=== PATIENT | female | born 1980 | race African-American/Black ===

== ENCOUNTER 2017-08-02 12:58 | Emergency (ER) | payer OTHER ==
[~2017-08-02] VITALS: Ht 170.2 cm; Wt 72.6 kg
[~2017-08-02 12:58] MED LIST: NORCO 5-325 TA1 EACH ORAL; SILVADENE20 GM TP
[2017-08-02] MEDS ORDERED: MONTELUKAST SOD10 MG ORAL (13:16)
[2017-08-02] MEDS ORDERED: ALBUTEROL2.5 MG/3 M INH (13:16)
--- NOTE | 2017-08-02 13:20 | Emergency Room Report ---
History of Present Illness General Chief Complaint: Pain Source: Patient Present Illness HPI 36-year-old female presents to the emergency department complaining of persistent cough x1 month. Patient also reports exacerbation of her asthma for which she just recently finished a short course of oral steroids. Patient reports she continues or worsening of her wheezing. Patient states that she has a cough that is worse at night she does report a history of GERD and states that she was taking medication regularly until she was and she never went back on her medication. Patient does report that initially he spicy foods , caffeine and chocolate. She denies fevers, chills she reports feeling some phlegm in her throat but does not come up. She states that she was seen approximately one week ago and she had normal chest x-ray that's when she was prescribed short course of steroids and given a new albuterol inhaler she was out. Patient is neck pain or stiffness. Denies CP, Palpitations, LOC, AMS, dizziness, Changes in Vision, Sensation, paresthesias, or a sudden severe headache. Allergies: Coded Allergies: No Known Allergies (Unverified , 09/05/16) Patient History Past Medical History: see triage record Past Surgical History: none Pertinent Family History: none Immunizations: UTD Reviewed Nursing Documentation: PMH: Agreed, PSxH: Agreed Nursing Documentation-PMH Past Medical History: No History, Except For Hx Asthma: Yes Review of Systems All Other Systems: negative except mentioned in HPI Physical Exam Vital Signs Date Time Temp Pulse Resp B/P (MAP) Pulse Ox O2 Delivery O2 Flow Rate FiO2 08/02/17 13:09 98.6 97 20 111/71 98 Room Air Sp02 EP Interpretation: reviewed, normal General Appearance: no apparent distress, alert, GCS 15, non-toxic Head: normocephalic, atraumatic Eyes: bilateral eye normal inspection, bilateral eye PERRL ENT: hearing grossly normal, normal pharynx, no angioedema, normal voice Neck: full range of motion, supple/symm/no masses Respiratory: chest non-tender, no respiratory distress, no accessory muscle use , speaking full sentences, wheezing Cardiovascular #1: regular rate, rhythm, no edema, normal capillary refill Musculoskeletal: back normal, gait/station normal, normal range of motion, non- tender Neurologic: alert, oriented x3, responsive, motor strength/tone normal, sensory intact, normal gait, speech normal Skin: normal color, no rash, warm/dry, well hydrated Lymphatic: no adenopathy Medical Decision Making PA Attestation Dr. Jason is my supervising Physician whom patient management has been discussed with. Diagnostic Impression: Primary Impression: Bronchitis Additional Impression: GERD (gastroesophageal reflux disease) Qualified Codes: K21.9 - Gastro-esophageal reflux disease without esophagitis ER Course 36-year-old female presents to the emergency department complaining of persistent cough x1 month. Patient also reports exacerbation of her asthma for which she just recently finished a short course of oral steroids. Patient reports she continues or worsening of her wheezing. Patient states that she has a cough that is worse at night she does report a history of GERD and states that she was taking medication regularly until she was and she never went back on her medication. Patient does report that initially he spicy foods , caffeine and chocolate. She denies fevers, chills she reports feeling some phlegm in her throat but does not come up. She states that she was seen approximately one week ago and she had normal chest x-ray that's when she was prescribed short course of steroids and given a new albuterol inhaler she was out. Patient is neck pain or stiffness. Denies CP, Palpitations, LOC, AMS, dizziness, Changes in Vision, Sensation, paresthesias, or a sudden severe headache. Ddx considered but are not limited to asthma exacerbation, CHF, URI, pneumonia, atypical pneumonia, PE, strep pharyngitis, meningitis. Vital signs: Pt. is afebrile, VS are WNL H&PE are most consistent with Bronchitis with possible exacerbation secondary to GERD. pt. denies fevers/chills, cough worse at night , and hx of GERD. ORDERS: none required at this time, the diagnosis is clinical ED INTERVENTIONS: -Albuterol & Atrovent nebulized treatment. - re-examination post nebulized treatment lungs are CTA bilaterally. -d/w pt. conservative treatment, and to follow up with a primary care provider. pt given a list of primary care clinics for follow up. d/w pt. to return to the ED with worsening or new symptoms. DISCHARGE: At this time pt. is stable for d/c to home. Will provide printed patient care instructions, and any necessary prescriptions. Care plan and follow up instructions have been discussed with the patient prior to discharge. Last Vital Signs Date Time Temp Pulse Resp B/P (MAP) Pulse Ox O2 Delivery O2 Flow Rate FiO2 08/02/17 13:09 98.6 97 20 111/71 98 Room Air Disposition: HOME, SELF-CARE Condition: Stable Scripts Ranitidine Hcl* (ZANTAC*) 150 Mg Tablet 150 MG ORAL TWICE A DAY for 14 Days, #28 TAB Prov: Cheri Santana 08/02/17 Guaifenesin (Guaifenesin) 1,200 Mg Tab.er.12h 1200 MG PO Q12HR for 10 Days, #20 TAB Prov: Cheri Santana 08/02/17 Codeine/Promethazine Hcl* (PROMETHAZINE-CODEINE SYRUP*) 118 Ml Syrup 5 ML ORAL Q6H Y for For Cough, #120 ML 0 Refills Prov: Cheri Santana 08/02/17 Patient Instructions: Acute Bronchitis, [id number], Food Choices for Gastroesophageal Reflux Disease, Adult, Tsek-[id number], Gastroesophageal Reflux Disease, Adult, [id number] Additional Instructions: Take medications as directed. Follow up with a Primary Care Provider in 3-5 days, even if your symptoms have resolved. Return sooner to ED if new symptoms occur, or current symptoms become worse. Do not drink alcohol, drive, or operate heavy machinery while taking Cough Syrup as this may cause drowsiness. - Please note that this Emergency Department Report was dictated using [employer] adviser technology software, occasionally this can lead to erroneous entry secondary to interpretation by the dictation equipment. Cheri Santana Aug 02, 2017 13:20
[2017-08-02] MEDS ORDERED: Albuterol ud Inhalation HHN ONE (13:30)
[2017-08-02] MEDS ORDERED: Ipratropium 0.02% Inh Soln 2.5ml UD HHN ONE (13:30)
[2017-08-02] MEDS ORDERED: ZANTAC150 MG ORAL (14:12)
[2017-08-02] MEDS ORDERED: GUAIFENESIN1200 MG PO (14:12)
[2017-08-02] MEDS ORDERED: PROMETHAZINE-C118 M1 ORAL (14:12)
[2017-08-02 14:28] VITALS: BP 107/71
== END 2017-08-02 14:29 | disposition home or self-care (01) ==
LOC: EMR 14:15
DX: J45.901 Unspecified asthma with (acute) exacerbation (principal); K21.9 Gastro-esophageal reflux disease without esophagitis
CPT/HCPCS: 94640; 94664; 99283

== ENCOUNTER 2017-08-14 07:05 | Emergency (ER) | payer OTHER ==
[~2017-08-14] VITALS: Ht 170.2 cm; Wt 72.6 kg
[~2017-08-14 07:05] MED LIST changes: +ALBUTEROL2.5 MG/3 M INH; +GUAIFENESIN1200 MG PO; +MONTELUKAST SOD10 MG ORAL; +PROMETHAZINE-C118 M1 ORAL; +ZANTAC150 MG ORAL
[2017-08-14] MEDS ORDERED: Acetaminophen 500mg (ES) tab ORAL ONE (07:45)
[2017-08-14] MEDS ORDERED: Cyclobenzaprine 10mg Tab ORAL ONE (07:45)
[2017-08-14 08:22] VITALS: BP 111/71
[2017-08-14] MEDS ORDERED: TYLENOL EXTRA500 MG ORAL (08:29)
[2017-08-14] MEDS ORDERED: CYCLOBENZAPRINE10 MG ORAL (08:29)
--- NOTE | 2017-08-14 08:39 | Emergency Room Report ---
History of Present Illness General Chief Complaint: Pain Source: Patient Present Illness HPI 36-year-old female presents ED complaining of left-sided chest wall pain and coughing times one month. Patient was seen here last month and was noted to have bronchitis. Patient states the coughing has persisted and now has left- sided chest wall pain. 10/10, worse with coughing twisting and bending. Patient states that when to another ER 2 days ago and was prescribed antibiotics. States the cough is slowly improving but pain persists. No other aggravating relieving factors. Denies any other associated symptoms Allergies: Coded Allergies: No Known Allergies (Unverified , 09/05/16) Patient History Past Medical History: asthma Past Surgical History: none Pertinent Family History: none Social History: Denies: smoking, alcohol use, drug use Last Menstrual Period: unk Immunizations: UTD Reviewed Nursing Documentation: PMH: Agreed, PSxH: Agreed Nursing Documentation-PMH Hx Asthma: Yes Review of Systems All Other Systems: negative except mentioned in HPI Physical Exam Vital Signs Date Time Temp Pulse Resp B/P (MAP) Pulse Ox O2 Delivery O2 Flow Rate FiO2 08/14/17 07:11 97.9 104 12 111/71 98 Room Air Sp02 EP Interpretation: reviewed, normal General Appearance: no apparent distress, alert, GCS 15, non-toxic Head: normocephalic Eyes: bilateral eye normal inspection, bilateral eye PERRL ENT: normal ENT inspection Neck: normal inspection Respiratory: lungs clear, normal breath sounds, other - L sided chest wall pain Cardiovascular #1: regular rate, rhythm, no edema Gastrointestinal: normal inspection Rectal: deferred Genitourinary: no CVA tenderness Musculoskeletal: normal inspection Neurologic: alert, oriented x3, responsive, motor strength/tone normal, sensory intact, speech normal Psychiatric: normal inspection Skin: normal inspection Lymphatic: normal inspection Medical Decision Making Diagnostic Impression: Primary Impression: Strain of chest wall Qualified Codes: S29.011A - Strain of muscle and tendon of front wall of thorax, initial encounter ER Course Hospital Course 36-year-old female presents to ED with chest wall pain times one month, coughing Differential diagnoses include: bronchitis, muscle strain, pneumonia Clinical course Patient placed on stretcher. After initial history, physical exam reveals female in no acute distress. Bilateral TM unremarkable. No pharyngeal erythema. No tonsillar exudates. No lymphadenopathy. lungs clear. There is reproducible sided lateral wall tenderness. No bruising or crepitus. Consistent with chest wall strain secondary to persistent coughing She was already prescribed antibiotics, steroids, cough medication by another ER 2 days ago. We will treat the muscle strain Given Tylenol, Flexeril with pain improved Diagnosis - strain of chest wall Stable and discharged home with Rx Tylenol, Flexeril. Instructed to followup with PMD. Return to ED if symptoms recur or worsen Last Vital Signs Date Time Temp Pulse Resp B/P (MAP) Pulse Ox O2 Delivery O2 Flow Rate FiO2 08/14/17 08:22 97.9 75 12 111/71 98 Room Air Status: improved Disposition: HOME, SELF-CARE Condition: Stable Scripts Cyclobenzaprine Hcl* (FLEXERIL*) 10 Mg Tablet 10 MG ORAL TID Y for Muscle Spasm, #20 TAB Prov: VISHAL LAUREN M.D. 08/14/17 Acetaminophen* (TYLENOL EXTRA STRENGTH*) 500 Mg Tablet 500 MG ORAL Q8H Y for Prn Headache/Temp > 101, #30 TAB 0 Refills Prov: VISHAL LAUREN M.D. 08/14/17 Patient Instructions: Chest Wall Pain, [id number] VISHAL LAUREN M.D. Aug 14, 2017 08:39
[2017-08-14 08:45] VITALS: BP 111/71
== END 2017-08-14 09:36 | disposition home or self-care (01) ==
LOC: EMR 07:33
DX: S29.011A Strain of muscle and tendon of front wall of thorax, initial encounter (principal); X58.XXXA Exposure to other specified factors, initial encounter; Y92.9 Unspecified place or not applicable; J45.909 Unspecified asthma, uncomplicated
CPT/HCPCS: 99283

== ENCOUNTER 2017-10-29 11:00 | Emergency (ER) | payer OTHER ==
[~2017-10-29] VITALS: Ht 170.2 cm; Wt 71.7 kg
[~2017-10-29 11:00] MED LIST changes: +CYCLOBENZAPRINE10 MG ORAL; +TYLENOL EXTRA500 MG ORAL
[2017-10-29] MEDS ORDERED: AMOXICILLIN500 MG ORAL (11:39)
[2017-10-29] MEDS ORDERED: PREDNISONE20 MG ORAL (11:39)
[2017-10-29 12:05] VITALS: BP 99/49
--- NOTE | 2017-10-30 07:00 | Emergency Room Report ---
History of Present Illness General Chief Complaint: Upper Respiratory Illness Source: Patient Present Illness HPI 37-year-old female presents ED for evaluation. Complaining of headache with productive cough and sinus pressure x2 weeks. Headache is sharp, 7/10, nonradiating. Denies fevers chills. Notes productive cough with greenish phlegm. Denies ear ache or sore throat. Attempted to leave with over-the- counter medications without relief. No other aggravating relieving factors. Denies any other associated symptoms Allergies: Uncoded Allergies: NUTS (Allergy, Unknown, 10/29/17) SEAFOOD (Allergy, Unknown, 10/29/17) Patient History Past Medical History: asthma, GERD Past Surgical History: none Pertinent Family History: none Social History: Denies: smoking, alcohol use, drug use Last Menstrual Period: Depo shot Now: No Immunizations: UTD Reviewed Nursing Documentation: PMH: Agreed, PSxH: Agreed Nursing Documentation-PMH Past Medical History: No History, Except For Hx Asthma: Yes Hx Gastrointestinal Problems: Yes - GERD Review of Systems All Other Systems: negative except mentioned in HPI Physical Exam Vital Signs Date Time Temp Pulse Resp B/P (MAP) Pulse Ox O2 Delivery O2 Flow Rate FiO2 10/29/17 11:14 97.8 92 16 99/49 97 Room Air 97.9 Sp02 EP Interpretation: reviewed, normal General Appearance: no apparent distress, alert, GCS 15, non-toxic Head: normocephalic Eyes: bilateral eye normal inspection, bilateral eye PERRL ENT: hearing grossly normal, normal pharynx, no angioedema, normal voice Neck: full range of motion, supple, no meningismus, supple/symm/no masses Respiratory: chest non-tender, lungs clear, normal breath sounds, speaking full sentences Cardiovascular #1: regular rate, rhythm, no edema Gastrointestinal: normal inspection Rectal: deferred Genitourinary: no CVA tenderness Musculoskeletal: normal inspection Neurologic: alert, oriented x3, responsive, motor strength/tone normal, sensory intact, speech normal Psychiatric: normal inspection Skin: normal inspection Lymphatic: normal inspection Medical Decision Making Diagnostic Impression: Primary Impression: Sinusitis Qualified Codes: J01.00 - Acute maxillary sinusitis, unspecified ER Course Hospital Course 37-year-old F presents to ED complaining of nasal congestion, headache, cough. Differential diagnoses include: URI, pharyngitis, otitis media, asthma Clinical course Patient placed on stretcher. After initial history, physical exam reveals a young female in no acute distress. Bilateral TM unremarkable. No pharyngeal erythema. No tonsillar exudates. No lymphadenopathy. lungs clear. abdomen soft. maxillary tenderness. Clinical findings consistent with sinusitits. Given persistence of symptoms for 2 weeks we will prescribe antibiotics and steroid Diagnosis - sinusitits Stable and discharged home with prescriptions for Prednisone, Amoxicillin. Instructed to followup with PMD. Return to ED if symptoms recur or worsen Last Vital Signs Date Time Temp Pulse Resp B/P (MAP) Pulse Ox O2 Delivery O2 Flow Rate FiO2 10/29/17 12:05 98.0 92 16 99/49 99 Room Air 98.0 Status: improved Disposition: HOME, SELF-CARE Condition: Stable Scripts Prednisone* (PREDNISONE*) 20 Mg Tablet 40 MG ORAL DAILY, #10 TAB Prov: VISHAL LAUREN M.D. 10/29/17 Amoxicillin* (AMOXIL*) 500 Mg Capsule 500 MG ORAL THREE TIMES A DAY for 10 Days, #30 CAP Prov: VISHAL LAUREN M.D. 10/29/17 Referrals: [facility],REFERRING (PCP) Patient Instructions: Sinusitis, Adult, [id number] VISHAL LAUREN M.D. Oct 30, 2017 07:00
== END 2017-10-29 12:07 | disposition home or self-care (01) ==
LOC: EMR 11:40
DX: J32.9 Chronic sinusitis, unspecified (principal); J45.909 Unspecified asthma, uncomplicated; K21.9 Gastro-esophageal reflux disease without esophagitis; Z91.018 Allergy to other foods; Z91.013 Allergy to seafood
CPT/HCPCS: 99283

== ENCOUNTER 2018-04-19 15:28 | Emergency (ER) | payer OTHER ==
[~2018-04-19] VITALS: Ht 170.2 cm; Wt 72.6 kg
[~2018-04-19 15:28] MED LIST changes: +AMOXICILLIN500 MG ORAL; +PREDNISONE20 MG ORAL
[2018-04-19 15:54] VITALS: BP 100/57
[2018-04-19] MEDS ORDERED: Lidocaine 2% Visc 15ml soln ORAL ONE (16:15)
[2018-04-19] MEDS ORDERED: Acetaminophen 500mg (ES) tab ORAL ONE (16:15)
[2018-04-19] MEDS ORDERED: AMOXICILLIN500 MG ORAL (16:16)
--- NOTE | 2018-04-19 16:16 | Emergency Room Report ---
History of Present Illness General Chief Complaint: Sore Throat Source: Patient Present Illness HPI 37-year-old female patient presents ER complaining of sore throat for the past few days. Denies fever. Denies vomiting. Reports right ear ache during this time, states she has been taking some tears in relief of symptoms. Reports she noticed white exudates on her tongue. Reports pain with swallowing. Denies chest pain, shortness of breath, vomiting, abdominal pain, other acute symptoms. Allergies: Uncoded Allergies: NUTS (Allergy, Unknown, 10/29/17) SEAFOOD (Allergy, Unknown, 10/29/17) Patient History Past Medical History: see triage record Last Menstrual Period: 04/10/18 Now: No Reviewed Nursing Documentation: PMH: Agreed; PSxH: Agreed Nursing Documentation-PMH Past Medical History: No History, Except For Hx Asthma: Yes Hx Gastrointestinal Problems: Yes - GERD Review of Systems All Other Systems: negative except mentioned in HPI Physical Exam Vital Signs Date Time Temp Pulse Resp B/P (MAP) Pulse Ox O2 Delivery O2 Flow Rate FiO2 04/19/18 15:36 98.2 81 18 100/57 94 Room Air 98.2 Sp02 EP Interpretation: reviewed, normal General Appearance: well appearing, no apparent distress, alert, GCS 15, non- toxic Head: normocephalic, atraumatic Eyes: bilateral eye normal inspection, bilateral eye PERRL ENT: hearing grossly normal, normal pharynx, no angioedema, normal voice, TMs + canals normal, uvula midline, moist mucus membranes, tonsillar swelling, pharyngeal erythema Neck: full range of motion Respiratory: lungs clear, normal breath sounds, no rhonchi, no respiratory distress, no accessory muscle use, no wheezing, speaking full sentences Cardiovascular #1: regular rate, rhythm, no edema Musculoskeletal: back normal, digits/nails normal, gait/station normal, normal range of motion, non-tender Neurologic: alert, oriented x3, responsive, motor strength/tone normal, sensory intact Skin: no rash Lymphatic: adenopathy - cervical Medical Decision Making PA Attestation Dr. Rodriguez is my supervising Physician whom patient management has been discussed with. Diagnostic Impression: Primary Impression: Pharyngitis ER Course Pt presents to ED c/o sore throat. DDX considered but are not limited to influenza, viral URI, strep throat, pharyngitis, tonsillitis. no uvula deviation, no neck stiffness, no stridor, no tripoding, low suspicion for peritonsillar abscess. VITAL SIGNS are WNL, patient is afebrile ER COURSE: tonsillar swelling, pharyngeal erythema, lymphadenopathy, no cough, afebrile, likely pharyngitis. Due to physical exam ad patient history, will provide antibiotic treatment. Take Tylenol for relief of symptoms. Saltwater gargles. Drink plenty of fluids. Symptomatic treatment. Take Tylenol for pain symptoms. DISCHARGE: Rx provided for amoxicillin At this time pt is stable for d/c to home. Patient resting comfortably, in no acute distress, nontoxic appearing, talking without difficulty Patient to take medications as instructed. Will provide with patient care instructions and any necessary prescriptions. Care plan and follow-up instructions provided. Patient instructed to follow-up with primary care provider in 3 - 5 days. Patient questions asked and answered. ER precautions given. Patient instructed to return to ER immediately for any new or worsening of symptoms including but not limited to fever, SOB, difficulty swallowing. - Please note that this Emergency Department Report was dictated using [employer] technology software, occasionally this can lead to erroneous entry secondary to interpretation by the dictation equipment. Last Vital Signs Date Time Temp Pulse Resp B/P (MAP) Pulse Ox O2 Delivery O2 Flow Rate FiO2 04/19/18 15:54 98.2 76 18 100/57 94 Room Air 98.2 Disposition: HOME, SELF-CARE Condition: Stable Scripts Amoxicillin* (AMOXIL*) 500 Mg Capsule 500 MG ORAL EVERY 8 HOURS for 7 Days, #21 CAP Prov: Joaquin Odom 04/19/18 Patient Instructions: Pharyngitis, [id number] Additional Instructions: Followup with primary care provider in 3 -5 days. Salt water gargles Take Tylenol for pain and fever symptoms Drink plenty of water. Take medications as directed. Patient questions asked and answered. ER precautions given, patient instructed to return to ER immediately for any new or worsening of symptoms including but not limited to intractable vomiting, difficulty breathing, inability to eat. Joaquin Odom Apr 19, 2018 16:16
[2018-04-19 16:24] VITALS: BP 100/57
== END 2018-04-19 16:24 | disposition home or self-care (01) ==
LOC: EMR 16:09
DX: J02.9 Acute pharyngitis, unspecified (principal); J45.909 Unspecified asthma, uncomplicated; Z91.018 Allergy to other foods; Z91.013 Allergy to seafood
CPT/HCPCS: 99283

== ENCOUNTER 2018-06-29 12:22 | Emergency (ER) | payer OTHER ==
[~2018-06-29] VITALS: Ht 170.2 cm; Wt 74.8 kg
[2018-06-29] MEDS ORDERED: Albuterol/Ipratropium 3ml neb HHN ONE (12:45)
--- NOTE | 2018-06-29 12:52 | Emergency Room Report ---
History of Present Illness General Chief Complaint: Asthma Source: Patient Present Illness HPI 37-year-old female patient presents ER complaining of asthma symptoms. Patient reports that she is wheezing for the past week. Reports symptoms worsen night. Reports has been using her inhaler with out relief of symptoms. Reports no cough during this time. Denies fever, chest pain, shortness of breath. Denies other acute symptoms. Denies abdominal pain, vomiting, diarrhea. Allergies: Uncoded Allergies: NUTS (Allergy, Unknown, 10/29/17) SEAFOOD (Allergy, Unknown, 10/29/17) Patient History Past Medical History: see triage record Last Menstrual Period: 05/15/2018 Reviewed Nursing Documentation: PMH: Agreed; PSxH: Agreed Nursing Documentation-PMH Past Medical History: No History, Except For Hx Cardiac Problems: No Hx Hypertension: No Hx Pacemaker: No Hx Asthma: Yes Hx COPD: No Hx Diabetes: No Hx Cancer: No Hx Gastrointestinal Problems: Yes - GERD Hx Dialysis: No History Of Psychiatric Problem: No Hx Neurological Problems: Yes - Sciatic nerve Hx Cerebrovascular Accident: No Hx Seizures: No Review of Systems All Other Systems: negative except mentioned in HPI Physical Exam Vital Signs Date Time Temp Pulse Resp B/P (MAP) Pulse Ox O2 Delivery O2 Flow Rate FiO2 06/29/18 12:28 97.6 63 16 109/63 99 Room Air 97.5 Sp02 EP Interpretation: reviewed, normal General Appearance: well appearing, no apparent distress, alert, GCS 15, non- toxic Head: normocephalic, atraumatic Eyes: bilateral eye normal inspection, bilateral eye PERRL ENT: hearing grossly normal, normal pharynx, no angioedema, normal voice, uvula midline, moist mucus membranes Neck: full range of motion Respiratory: lungs clear, no rhonchi, no respiratory distress, no accessory muscle use, speaking full sentences, wheezing - diffuse intermittent expiratory , other - no stridor Cardiovascular #1: regular rate, rhythm, no edema Musculoskeletal: back normal, digits/nails normal, gait/station normal, normal range of motion, non-tender Neurologic: alert, oriented x3, responsive, motor strength/tone normal, sensory intact Psychiatric: mood/affect normal Skin: no rash Medical Decision Making PA Attestation Dr. Lundy is my supervising Physician whom patient management has been discussed with. Diagnostic Impression: Primary Impression: Asthma exacerbation ER Course Pt presents to ED c/o asthma symptoms. DDX considered but are not limited to asthma, viral URI, influenza, bronchitis, pneumonia. No rhonchi or rales, patient afebrile, low suspicion for pneumonia at this time , does not require x-rays or imaging. VITAL SIGNS are WNL, patient is afebrile. Ordered breathing treatment and medication. ER COURSE Patient provided with prednisone Duoneb breathing treatment provided. Following treatment patient states no longer having wheezing symptoms. Lungs clear to auscultation on repeat exam. Patient is resting comfortably in no acute distress. ER precautions given. F/u with PCP. Declined Rx for cough medication. DISCHARGE: -Rx given for Prednisone. -Rx provided for Albuterol MDI. At this time pt is stable for d/c to home. Patient is resting comfortably in no acute distress, nontoxic appearing, able to answer questions without difficulty. Patient to take medications as instructed Will provide with patient care instructions and any necessary prescriptions. Care plan and follow-up instructions provided. Patient instructed to follow-up with primary care provider in 3 - 5 days. Patient questions asked and answered. Patient reports understanding and agreement to treatment plan. ER precautions given. Patient instructed to return to ER immediately for any new or worsening of symptoms including but not limited to increasing SOB, persistent fever. - Please note that this Emergency Department Report was dictated using [employer] admin technology software, occasionally this can lead to erroneous entry secondary to interpretation by the dictation equipment. Last Vital Signs Date Time Temp Pulse Resp B/P (MAP) Pulse Ox O2 Delivery O2 Flow Rate FiO2 06/29/18 12:28 97.6 63 16 109/63 99 Room Air 97.5 Status: improved Disposition: HOME, SELF-CARE Condition: Stable Scripts Albuterol Sulfate* (ALBUTEROL SULFATE MDI*) 8.5 Gm Hfa.aer.ad 2 PUFF INH Q4H, #1 INH 0 Refills Prov: Joaquin Odom 06/29/18 Prednisone* (PREDNISONE*) 20 Mg Tablet 40 MG ORAL DAILY for 4 Days, #8 TAB Prov: Joaquin Odom 06/29/18 Patient Instructions: Asthma, Adult Additional Instructions: Followup with primary care provider in 3 -5 days. Discuss treatment and management options for asthma including need for new medications as needed. Take medications as directed. Patient questions asked and answered. ER precautions given, patient instructed to return to ER immediately for any new or worsening of symptoms. Joaquin Odom Jun 29, 2018 12:52
[2018-06-29] MEDS ORDERED: PREDNISONE20 MG ORAL (13:21)
[2018-06-29] MEDS ORDERED: ALBUTEROL SULF8.5 GM INH (13:21)
[2018-06-29 13:33] VITALS: BP 109/63
== END 2018-06-29 13:35 | disposition home or self-care (01) ==
LOC: EMR 12:55
DX: J45.901 Unspecified asthma with (acute) exacerbation (principal); K21.9 Gastro-esophageal reflux disease without esophagitis; Z91.018 Allergy to other foods; Z91.013 Allergy to seafood
CPT/HCPCS: 94640; 94664; 99284; J7512; J7620

== ENCOUNTER 2018-12-14 13:23 | Emergency (ER) | payer OTHER ==
[~2018-12-14] VITALS: Ht 170.2 cm; Wt 61.2 kg
[~2018-12-14 13:23] MED LIST changes: +ALBUTEROL SULF8.5 GM INH
[2018-12-14 13:40] VITALS: BP 105/62
--- NOTE | 2018-12-14 14:21 | Emergency Room Report ---
History of Present Illness General Chief Complaint: Sore Throat Source: Patient Present Illness HPI 38-year-old female presents to the emergency department complaining of asthma exacerbation, dry cough, 3 out of 10 in severity sore throat as well as nasal congestion and rhinorrhea 5 days. Patient denies fevers or chills she reports that she is out of her albuterol inhaler at home. Patient denies recent travel or ill contacts. Patient denies swollen tender lymph nodes or swollen tonsils. Reports wheezing.. Reports coughing up some phlegm intermittently usually in the morning. Report some relief with inhaler, and her symptoms are aggravated when she is up and about moving around and doing housework. Denies CP, palpitations, Dizziness or Syncope. Allergies: Uncoded Allergies: NUTS (Allergy, Unknown, 10/29/17) SEAFOOD (Allergy, Unknown, 10/29/17) Patient History Past Medical History: see triage record Past Surgical History: none Pertinent Family History: none Last Menstrual Period: 11/17/18 Now: No Immunizations: UTD Reviewed Nursing Documentation: PMH: Agreed; PSxH: Agreed Nursing Documentation-PMH Past Medical History: No History, Except For Hx Cardiac Problems: No Hx Hypertension: No Hx Pacemaker: No Hx Asthma: Yes Hx COPD: No Hx Diabetes: No Hx Cancer: No Hx Gastrointestinal Problems: Yes - GERD Hx Dialysis: No Hx Neurological Problems: Yes - Sciatic nerve Hx Cerebrovascular Accident: No Hx Seizures: No Review of Systems All Other Systems: negative except mentioned in HPI Physical Exam Vital Signs Date Time Temp Pulse Resp B/P (MAP) Pulse Ox O2 Delivery O2 Flow Rate FiO2 12/14/18 13:26 98.2 82 20 105/62 96 Room Air Sp02 EP Interpretation: reviewed, normal General Appearance: no apparent distress, alert, GCS 15, non-toxic Head: normocephalic, atraumatic Eyes: bilateral eye normal inspection, bilateral eye PERRL ENT: hearing grossly normal, normal voice, TMs + canals normal, uvula midline, nasal congestion, pharyngeal erythema Neck: full range of motion Respiratory: chest non-tender, lungs clear, speaking full sentences, wheezing Cardiovascular #1: regular rate, rhythm Musculoskeletal: back normal, gait/station normal, normal range of motion, non- tender Neurologic: alert, oriented x3, responsive, motor strength/tone normal, sensory intact, speech normal, grossly normal Psychiatric: judgement/insight normal Skin: normal color, no rash, warm/dry, well hydrated Lymphatic: no adenopathy Medical Decision Making Medicare Attestation Dr. lombardo is my supervising Physician whom patient management has been discussed with. Diagnostic Impression: Primary Impression: Bronchitis ER Course 38-year-old female presents to the emergency department complaining of asthma exacerbation, dry cough, 3 out of 10 in severity sore throat as well as nasal congestion and rhinorrhea 5 days. Patient denies fevers or chills she reports that she is out of her albuterol inhaler at home. Patient denies recent travel or ill contacts. Patient denies swollen tender lymph nodes or swollen tonsils. Reports wheezing.. Reports coughing up some phlegm intermittently usually in the morning. Report some relief with inhaler, and her symptoms are aggravated when she is up and about moving around and doing housework. Denies CP, palpitations, Dizziness or Syncope. Ddx considered but are not limited to URI, pneumonia, PE, strep pharyngitis, meningitis. Vital signs: Pt.is afebrile VS are WNL H&PE are most consistent with bronchitis with PND. ORDERS: none required at this time, the diagnosis is clinical ED INTERVENTIONS: None required at this time. DISCHARGE: At this time pt. is stable for d/c to home. Will provide printed patient care instructions, and any necessary prescriptions. Care plan and follow up instructions have been discussed with the patient prior to discharge. Last Vital Signs Date Time Temp Pulse Resp B/P (MAP) Pulse Ox O2 Delivery O2 Flow Rate FiO2 12/14/18 13:40 98.2 67 20 105/62 96 Room Air Disposition: HOME, SELF-CARE Condition: Stable Scripts Guaifen/Phenyleph/Acetaminophn (MUCINEX FAST-MAX COLD-SINUS TB) 1 Each Tablet 1 EACH PO Q12HR for 7 Days, #14 TAB Prov: Cheri Santana 12/14/18 Prednisone* (PREDNISONE*) 20 Mg Tablet 40 MG ORAL DAILY for 5 Days, #10 TAB Prov: Cheri Santana 12/14/18 Codeine/Promethazine Hcl* (PROMETHAZINE-CODEINE SYRUP*) 118 Ml Syrup 5 ML ORAL Q6H PRN for For Cough, #120 ML 0 Refills Prov: Cheri Santana 12/14/18 Albuterol Sulfate* (ALBUTEROL SULFATE MDI*) 8.5 Gm Hfa.aer.ad 2 PUFF INH Q3H, #1 INH 2 Refills Prov: Cheri Santana 12/14/18 Patient Instructions: Acute Bronchitis, [id number] Additional Instructions: Take medications as directed. Follow up with a Primary Care Provider in 3-5 days, even if your symptoms have resolved. --Please review list of primary care clinics, if you do not already have a primary care provider Return sooner to ED if new symptoms occur, or current symptoms become worse. Do not drink alcohol, drive, or operate heavy machinery while taking COUGH SYRUP as this may cause drowsiness. - Please note that this Emergency Department Report was dictated using [employer] light repairer technology software, occasionally this can lead to erroneous entry secondary to interpretation by the dictation equipment. Cheri Santana Dec 14, 2018 14:21
[2018-12-14] MEDS ORDERED: ALBUTEROL SULF8.5 GM INH (14:22)
[2018-12-14] MEDS ORDERED: MUCINEX FAST-M1 EAC2 PO (14:22)
[2018-12-14] MEDS ORDERED: PREDNISONE20 MG ORAL (14:22)
[2018-12-14] MEDS ORDERED: PROMETHAZINE-C118 M1 ORAL (14:22)
[2018-12-14 15:14] VITALS: BP 105/62
== END 2018-12-14 14:30 | disposition home or self-care (01) ==
LOC: EMR 14:29
DX: J20.9 Acute bronchitis, unspecified (principal); Z91.018 Allergy to other foods; Z91.013 Allergy to seafood; K21.9 Gastro-esophageal reflux disease without esophagitis
CPT/HCPCS: 99282

== ENCOUNTER 2019-06-14 10:40 | Emergency (ER) | payer OTHER ==
[~2019-06-14] VITALS: Ht 170.2 cm; Wt 77.6 kg
[~2019-06-14 10:40] MED LIST changes: +MUCINEX FAST-M1 EAC2 PO
[2019-06-14] MEDS ORDERED: D5NS 1,000 ML IV ONE (11:00)
[2019-06-14 11:21] LABS: APPEARANCE,URINE CLEAR; BILIRUBIN, URINE NEGATIVE (NEGATIVE); COLOR,URINE PALE YELLOW; GLUCOSE, URINE (UA) NEGATIVE (NEGATIVE); KETONES,URINE 3+ (NEGATIVE); LEUKOCYTE ESTERASE ,URINE 1+ (NEGATIVE); NITRITE,URINE NEGATIVE (NEGATIVE); PH,URINE 7 (4.5-8.0); PROTEIN,URINE NEGATIVE (NEGATIVE); UROBILINOGEN,URINE 1 MG/DL (0.0-1.0)
[2019-06-14 11:23] LABS: BASOPHILS % (AUTO) 0.5 % (0.0-2.0); EOSINOPHILS % (AUTO) 1.3 % (0.0-3.0); HEMATOCRIT 38.3 % (37.0-47.0); HEMOGLOBIN 13.1 G/DL (12.0-16.0); LYMPHOCYTES % (AUTO) 7.2 % (20.0-45.0); MEAN CORPUSCULAR VOLUME 91 FL (80-99); MONOCYTES % (AUTO) 6.6 % (1.0-10.0); NEUTROPHILS % (AUTO) 84.3 % (45.0-75.0); PLATELET COUNT 179 K/UL (150-450); RED CELL DISTRIBUTION WIDTH 11.3 % (11.6-14.8)
--- NOTE | 2019-06-14 11:25 | NUR ---
ED Nurse Note:pt. came with pausea flu like symptoms, no fever, blood and urine sent to labs, given IV meds and fluids , VSS, pt. getting abd U/S done
[2019-06-14 11:39] VITALS: BP 101/61
[2019-06-14 11:40] LABS: ANION GAP 8 mmol/L (5-15); BLOOD UREA NITROGEN 9 mg/dL (7-18); CALCIUM 8.7 MG/DL (8.5-10.1); CARBON DIOXIDE 24 MMOL/L (21-32); CHLORIDE 104 MMOL/L (98-107); CREATININE 0.7 MG/DL (0.55-1.30); POTASSIUM 3.6 MMOL/L (3.5-5.1); SODIUM 136 MMOL/L (136-145)
[2019-06-14 11:44] LABS: ALANINE AMINOTRANSFERASE 14 U/L (12-78); ALBUMIN 3.1 G/DL (3.4-5.0); ALBUMIN/GLOBULIN RATIO 0.8 (1.0-2.7); ALKALINE PHOSPHATASE 92 U/L (46-116); ASPARTATE AMINO TRANSFERASE 18 U/L (15-37)
--- NOTE | 2019-06-14 11:56 | Emergency Room Report ---
History of Present Illness General Chief Complaint: Abdominal Pain Source: Patient Present Illness HPI 38-year-old female G5, , 7 months presents with nausea vomiting, happy abdominal pain no aggravating or alleviating factors severity is mild, patient reports that her daughter has the same illness she thinks she caught it from her, symptoms started this morning, she had 4 episodes of nausea vomiting, no diarrhea, patient presents for evaluation. Allergies: Uncoded Allergies: NUTS (Allergy, Unknown, 10/29/17) SEAFOOD (Allergy, Unknown, 10/29/17) Patient History Past Medical History: see triage record Last Menstrual Period: november 25, 2018 Now: Yes - 7 months Reviewed Nursing Documentation: PMH: Agreed; PSxH: Agreed Nursing Documentation-PMH Hx Cardiac Problems: No Hx Hypertension: No Hx Pacemaker: No Hx Asthma: Yes Hx COPD: No Hx Diabetes: No Hx Cancer: No Hx Gastrointestinal Problems: Yes - GERD Hx Dialysis: No Hx Neurological Problems: Yes - Sciatic nerve Hx Cerebrovascular Accident: No Hx Seizures: No Review of Systems All Other Systems: negative except mentioned in HPI Physical Exam Vital Signs Date Time Temp Pulse Resp B/P (MAP) Pulse Ox O2 Delivery O2 Flow Rate FiO2 06/14/19 10:44 98.4 105 17 101/61 (74) 95 Room Air Sp02 EP Interpretation: reviewed, normal General Appearance: well appearing, no apparent distress, alert Head: normocephalic, atraumatic Eyes: bilateral eye PERRL, bilateral eye EOMI ENT: uvula midline, moist mucus membranes Neck: supple, thyroid normal, supple/symm/no masses Respiratory: lungs clear, no respiratory distress, no retraction, no accessory muscle use Cardiovascular #1: normal peripheral pulses, regular rate, rhythm, no edema, no gallop, no murmur Gastrointestinal: non tender, soft, no guarding, no rebound, other - Gravid abdomen Musculoskeletal: normal inspection Neurologic: alert, oriented x3 Psychiatric: mood/affect normal Skin: no rash, warm/dry Medical Decision Making Diagnostic Impression: Primary Impression: Abdominal pain during in third trimester Additional Impression: Diarrhea Qualified Codes: R19.7 - Diarrhea, unspecified ER Course 38-year-old female presents with generalized abdominal pain after her daughter came back sick, she thinks she also got sick she now has diarrhea, differential diagnosis includes completion of , gastroenteritis, diverticulitis, appendicitis Patient has a soft abdomen, patient given rehydration, Labs show no acute processes, ultrasound is negative for any acute pathology other than a normal Patient given strict return precautions follow-up with obn Laboratory Tests Test 06/14/19 10:50 White Blood Count 6.0 K/UL (4.8-10.8) Red Blood Count 4.20 M/UL (4.20-5.40) Hemoglobin 13.1 G/DL (12.0-16.0) Hematocrit 38.3 % (37.0-47.0) Mean Corpuscular Volume 91 FL (80-99) Mean Corpuscular Hemoglobin 31.2 PG (27.0-31.0) H Mean Corpuscular Hemoglobin Concent 34.2 G/DL (32.0-36.0) Red Cell Distribution Width 11.3 % (11.6-14.8) L Platelet Count 179 K/UL (150-450) Mean Platelet Volume 6.4 FL (6.5-10.1) L Neutrophils (%) (Auto) 84.3 % (45.0-75.0) H Lymphocytes (%) (Auto) 7.2 % (20.0-45.0) L Monocytes (%) (Auto) 6.6 % (1.0-10.0) Eosinophils (%) (Auto) 1.3 % (0.0-3.0) Basophils (%) (Auto) 0.5 % (0.0-2.0) Urine Color Pale yellow Urine Appearance Clear Urine pH 7 (4.5-8.0) Urine Specific [place] 1.010 (1.005-1.035) Urine Protein Negative (NEGATIVE) Urine Glucose (UA) Negative (NEGATIVE) Urine Ketones 3+ (NEGATIVE) H Urine Blood Negative (NEGATIVE) Urine Nitrite Negative (NEGATIVE) Urine Bilirubin Negative (NEGATIVE) Urine Urobilinogen 1 MG/DL (0.0-1.0) H Urine Leukocyte Esterase 1+ (NEGATIVE) H Urine RBC 0-2 /HPF (0 - 2) Urine WBC 2-4 /HPF (0 - 2) Urine Squamous Epithelial Cells Few /LPF (NONE/OCC) Urine Bacteria Few /HPF (NONE) Sodium Level 136 MMOL/L (136-145) Potassium Level 3.6 MMOL/L (3.5-5.1) Chloride Level 104 MMOL/L (98-107) Carbon Dioxide Level 24 MMOL/L (21-32) Anion Gap 8 mmol/L (5-15) Blood Urea Nitrogen 9 mg/dL (7-18) Creatinine 0.7 MG/DL (0.55-1.30) Estimate Glomerular Filtration Rate > 60 mL/min (>60) Glucose Level 86 MG/DL (74-106) Calcium Level 8.7 MG/DL (8.5-10.1) Total Bilirubin 1.0 MG/DL (0.2-1.0) Aspartate Amino Transferase (AST) 18 U/L (15-37) Alanine Aminotransferase (ALT) 14 U/L (12-78) Alkaline Phosphatase 92 U/L (46-116) Total Protein 6.8 G/DL (6.4-8.2) Albumin 3.1 G/DL (3.4-5.0) L Globulin 3.7 g/dL Albumin/Globulin Ratio 0.8 (1.0-2.7) L Lipase 81 U/L (73-393) Human Chorionic Gonadotropin, Quant 705 mIU/mL (1-6) H CT/MRI/US Diagnostic Results CT/MRI/US Diagnostic Results : Impression Procedure: US OB Comp>14wk Single Gest Indication: Vomiting, pelvic pain, patient Technique: Transabdominal images of the uterus and fetus with Doppler interrogation. Comparison: none Findings: There is a single live intrauterine . This demonstrates breech presentation. There is positive heart activity, heart rate is 139 bpm. There is anterior fundal placenta, which clears the internal cervical os. Cervix is closed, endocervical canal measures 3.2 cm in length. Amniotic fluid volume is normal. Amniotic fluid index is 23.6 cm measurements as follows: Biparietal diameter 7.5 cm, 27 weeks one day; head circumference 26 cm, 26 weeks 2 days; abdominal circumference 22.5 cm, 26 weeks 6 days; femur length 5.5 cm, 29 weeks zero days. Estimated gestational age by average of ultrasound measurements is 28 weeks 3 days. Estimated gestational age by dates is 20 weeks 5 days. Estimated date of delivery is 09/03/2019 Only limited assessment of anatomy, due to emergent nature of the exam. Grossly normal lumbar, cervical, thoracic spine. stomach, four-chamber heart, three-vessel cord are identified Impression: 28 week 3 day, by average ultrasound measurements, single live intrauterine . Breech presentation, no unusual features otherwise Dictated By: Kaamr Sifuentes MD Electronically Signed By: Kamar Sifuentes MD Signed Date/Time 06/14/19 1988 CC: Tyree Can MD Last Vital Signs Date Time Temp Pulse Resp B/P (MAP) Pulse Ox O2 Delivery O2 Flow Rate FiO2 06/14/19 11:39 98.4 99 17 101/61 95 Room Air Disposition: HOME, SELF-CARE Condition: Stable Referrals: NON PHYSICIAN (PCP) [facility] Kamara [facility]. [facility] Patient Instructions: Abdominal Pain During Additional Instructions: The patient was provided with discharge instructions, notified to follow-up with a primary care doctor and or specialist in the next 24-48 hours, and to return to the ED if they have worsening of their symptoms. Please note that this report is being documented using [employer] technology. This can lead to erroneous entry secondary to incorrect interpretation by the dictating instrument. Tyree Can MD Jun 14, 2019 11:56
--- NOTE | 2019-06-14 14:08 | Diagnostic Imaging Report ---
Indication: Vomiting, pelvic pain, patient Technique: Transabdominal images of the uterus and fetus with Doppler interrogation. Comparison: none Findings: There is a single live intrauterine . This demonstrates breech presentation. There is positive heart activity, heart rate is 139 bpm. There is anterior fundal placenta, which clears the internal cervical os. Cervix is closed, endocervical canal measures 3.2 cm in length. Amniotic fluid volume is normal. Amniotic fluid index is 23.6 cm measurements as follows: Biparietal diameter 7.5 cm, 27 weeks one day; head circumference 26 cm, 26 weeks 2 days; abdominal circumference 22.5 cm, 26 weeks 6 days; femur length 5.5 cm, 29 weeks zero days. Estimated gestational age by average of ultrasound measurements is 28 weeks 3 days. Estimated gestational age by dates is 20 weeks 5 days. Estimated date of delivery is 09/03/2019 Only limited assessment of anatomy, due to emergent nature of the exam. Grossly normal lumbar, cervical, thoracic spine. stomach, four-chamber heart, three-vessel cord are identified Impression: 28 week 3 day, by average ultrasound measurements, single live intrauterine . Breech presentation, no unusual features otherwise
[2019-06-14] MEDS ORDERED: CEPHALEXIN500 M1 ORAL (14:22)
--- NOTE | 2019-06-14 14:30 | NUR ---
ER DISCHARGE NOTE: Patient is cleared to be discharged per ERMD, pt is aox4, on room air, with stable vital signs. pt was given dc and prescription instructions, pt was able to verbalize understanding, pt id band and iv site removed without complications. pt is able to ambulate with steady gait. pt took all belongings,
[2019-06-14 14:32] VITALS: BP 107/61
[2019-06-14 14:34] VITALS: BP 107/61
== END 2019-06-14 14:38 | disposition home or self-care (01) ==
LOC: EMR 10:55
DX: O26.893 Other specified pregnancy related conditions, third trimester (principal); R19.7 Diarrhea, unspecified; R10.9 Unspecified abdominal pain; K21.9 Gastro-esophageal reflux disease without esophagitis; J45.909 Unspecified asthma, uncomplicated; Z91.013 Allergy to seafood; Z91.018 Allergy to other foods; Z3A.28 28 weeks gestation of pregnancy
CPT/HCPCS: 36415; 76805; 80053; 81003; 83690; 84702; 85025; 86850; 86900; 86901; 96361; 96374; J2405; Z7502; 99284

== ENCOUNTER 2020-06-24 10:03 | Emergency (ER) | payer OTHER ==
[~2020-06-24] VITALS: Ht 167.6 cm; Wt 72.6 kg
[~2020-06-24 10:03] MED LIST changes: +CEPHALEXIN500 M1 ORAL
--- NOTE | 2020-06-24 10:22 | NUR ---
ED Nurse Note: Dr Cunningham at the bed side.
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
[2020-06-24 10:30] VITALS: BP 116/87
[2020-06-24] MEDS ORDERED: Tylenol #3 tab (300mg/30mg) ORAL ONE (10:30)
[2020-06-24] MEDS ORDERED: Tetanus/Diptheria/Pertussis IM ONE (10:30)
[2020-06-24] MEDS ORDERED: SILVADENE20 GM TP (10:36)
[2020-06-24] MEDS ORDERED: ACETAMINOPHEN-1 EAC1 ORAL (10:36)
[2020-06-24 10:47] VITALS: BP 120/90
--- NOTE | 2020-06-24 10:47 | NUR ---
ER DISCHARGE NOTE: Patient is cleared to be discharged per ERMD, pt is aox4, on room air, with stable vital signs. pt was given dc and prescription instructions, pt was able to verbalize understanding, pt id band removed. pt is able to ambulate with steady gait. pt took all belongings.
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
== END 2020-06-24 10:47 | disposition home or self-care (01) ==
LOC: EMR 10:19
DX: T22.111A Burn of first degree of right forearm, initial encounter (principal); X12.XXXA Contact with other hot fluids, initial encounter; Y92.9 Unspecified place or not applicable; Z91.012 Allergy to eggs; Z91.018 Allergy to other foods; Z91.013 Allergy to seafood; K21.9 Gastro-esophageal reflux disease without esophagitis; Z23 Encounter for immunization
CPT/HCPCS: 90471; 90715; Z7502; 99282

== ENCOUNTER 2020-07-18 10:02 | Emergency (ER) | payer OTHER ==
[~2020-07-18] VITALS: Ht 170.2 cm; Wt 73.5 kg
[~2020-07-18 10:02] MED LIST changes: +ACETAMINOPHEN-1 EAC1 ORAL
--- NOTE | 2020-07-18 10:02 | NUR ---
ED Nurse Note: PT ARRIVED TO ER C/P LUMP ON RIGHT EAR. DENIES DRAINAGE, DENIES PAIN. SITE INTACT. PT JUST REPORTS THAT IT IS BOTHERSOME.
[2020-07-18 10:20] VITALS: BP 111/59
[2020-07-18 10:34] VITALS: BP 122/61
--- NOTE | 2020-07-18 10:34 | Emergency Room Report ---
History of Present Illness General Chief Complaint: Skin Rash/Abscess Source: Patient Present Illness HPI Disclaimer: Please note that this report is being documented using [employer] technology. This can lead to erroneous entry secondary to incorrect interpretation by the dictating instrument. HPI: 31-year-old female presents for evaluation of nodule behind the right ear. Noticed it 2 days ago. Firm nontender nodule right below the right earlobe. Denies ear pain, drainage, changes in her hearing, sore throat, nasal congestion. Cannot recall specific injury though reports recent mosquito bites as well as possible poke from the back of the earring. Denies overlying skin breakdown, swelling, tenderness, fever, chills. PMH: Asthma PSH: Reviewed Allergies: Reviewed Social Hx: Reviewed Allergies: Coded Allergies: EGG (Verified Allergy, Unknown, 06/24/20) Uncoded Allergies: NUTS (Allergy, Unknown, 10/29/17) SEAFOOD (Allergy, Unknown, 10/29/17) COVID-19 Screening Contact w/high risk pt: No Experienced COVID-19 symptoms?: No COVID-19 Testing performed ALLERGIST/IMMUNOLOGIST PHYSICIAN: No Patient History Last Menstrual Period: 06/24/2020 Nursing Documentation-PMH Past Medical History: No Stated History Hx Cardiac Problems: No Hx Hypertension: No Hx Pacemaker: No Hx Asthma: Yes Hx COPD: No Hx Diabetes: No Hx Cancer: No Hx Gastrointestinal Problems: Yes - GERD Hx Dialysis: No Hx Neurological Problems: Yes - Sciatic nerve Hx Cerebrovascular Accident: No Hx Seizures: No Review of Systems All Other Systems: negative except mentioned in HPI Physical Exam Vital Signs Date Time Temp Pulse Resp B/P (MAP) Pulse Ox O2 Delivery O2 Flow Rate FiO2 07/18/20 10:15 97.5 74 15 111/59 (76) 100 Room Air General: Awake and alert, no acute distress HEENT: NC/AT. EOMI. PERRLA. Uvula midline, no erythema, no edema, no exudate, tonsils 1+. Tympanic membranes are pearly vu, nonbulging, no erythema, no effusion bilaterally. There is a less than half a centimeter firm mobile nodule beneath the right ear just underneath the earlobe. This is nontender. No ove rlying skin changes. No fluctuance. Resp: Normal work of breathing Skin: Intact. No abrasions, laceration or rash over the exposed skin MSK: Normal tone and bulk. Moving all extremities. No obvious deformity. Neuro: Awake and alert. Mentating appropriately Medical Decision Making Diagnostic Impression: Primary Impression: Nodule of right external ear ER Course Is a 38-year-old female presenting for evaluation of nodule over the right ear noticed 2 days ago. Nontender, no signs of infection. May be a keloid, calcification, cyst though at this time is very small, mobile, nontender no overlying signs of infection. Patient has a PMD and can follow-up with outpatient ultrasound and biopsy as needed. Instructed her to monitor closely and if she develops signs of infection to return to the ED. She understands and agrees with this treatment plan. Stable for outpatient follow-up. Last Vital Signs Date Time Temp Pulse Resp B/P (MAP) Pulse Ox O2 Delivery O2 Flow Rate FiO2 07/18/20 10:20 97.5 72 15 111/59 100 Room Air Disposition: HOME, SELF-CARE Condition: Stable Patient Instructions: Needle Biopsy, Care After Additional Instructions: Follow-up with your primary care doctor and keep an eye on the nodule. If it is growing return to the emergency department for reevaluation. Otherwise, follow- up with your primary care doctor for outpatient ultrasound and needle biopsy if needed. Return with worsening swelling, drainage, fever, chills, overlying skin changes. Phan Clarke MD Jul 18, 2020 10:34
--- NOTE | 2020-07-18 10:35 | NUR ---
ER DISCHARGE NOTE: Patient is cleared to be discharged per ERMD, pt is aox4, on room air, with stable vital signs. pt was given dc instructions, pt was able to verbalize understanding, pt id band REMOVED. pt is able to ambulate with steady gait. pt took all belongings.
== END 2020-07-18 10:36 | disposition home or self-care (01) ==
LOC: EMR 10:25
DX: H61.891 Other specified disorders of right external ear (principal); J45.909 Unspecified asthma, uncomplicated; Z79.899 Other long term (current) drug therapy; Z91.012 Allergy to eggs; Z91.018 Allergy to other foods; Z91.013 Allergy to seafood
CPT/HCPCS: 99282

== ENCOUNTER 2020-10-10 12:59 | Emergency (ER) | payer OTHER ==
[~2020-10-10] VITALS: Ht 170.2 cm; Wt 73.9 kg
[2020-10-10] MEDS ORDERED: Bacitracin Oint UD TOPIC ONE (13:30)
[2020-10-10] MEDS ORDERED: HYDROcodone/Acetamin 5/325 tab ORAL ONE (13:30)
[2020-10-10 14:04] VITALS: BP 136/79
--- NOTE | 2020-10-10 14:23 | Emergency Room Report ---
History of Present Illness General Chief Complaint: Pain Source: Patient Present Illness HPI Pt. presents to the ED c/o pain, swelling, and erythema of the Right ring finger. Pt. is right hand dominant. Pain is constant and localized. Pain exacerbated with touch. 10/10 in severity. Onset 3 was progressive over 3 days. Pt. has been doing warm water soaks at home with Epson salt. Pt. utd with vaccinations. Pt. reports having a hang nail there several days ago. Denies fevers or chills. Denies finger pad tenderness. Allergies: Coded Allergies: EGG (Verified Allergy, Unknown, 06/24/20) Uncoded Allergies: NUTS (Allergy, Unknown, 10/29/17) SEAFOOD (Allergy, Unknown, 10/29/17) COVID-19 Screening Contact w/high risk pt: No Experienced COVID-19 symptoms?: No COVID-19 Testing performed FUNDRAISING ASSISTANT: No Patient History Past Medical History: see triage record Past Surgical History: none Pertinent Family History: none Last Menstrual Period: 09/19/20 Now: No Reviewed Nursing Documentation: PMH: Agreed; PSxH: Agreed Nursing Documentation-PMH Past Medical History: No History, Except For Hx Cardiac Problems: No Hx Hypertension: No Hx Pacemaker: No Hx Asthma: Yes Hx COPD: No Hx Diabetes: No Hx Cancer: No Hx Gastrointestinal Problems: Yes - GERD Hx Dialysis: No Hx Neurological Problems: Yes - Sciatic nerve Hx Cerebrovascular Accident: No Hx Seizures: No Review of Systems All Other Systems: negative except mentioned in HPI Physical Exam Vital Signs Date Time Temp Pulse Resp B/P (MAP) Pulse Ox O2 Delivery O2 Flow Rate FiO2 10/10/20 13:03 98.8 79 18 126/73 (90) 97 Room Air Sp02 EP Interpretation: reviewed, normal General Appearance: no apparent distress, alert, GCS 15, non-toxic Head: normocephalic, atraumatic Eyes: bilateral eye normal inspection, bilateral eye PERRL ENT: hearing grossly normal, normal voice Neck: full range of motion Respiratory: lungs clear, normal breath sounds, speaking full sentences Cardiovascular #1: regular rate, rhythm, normal capillary refill Musculoskeletal: normal range of motion, gait/station normal, non-tender Neurologic: alert, motor strength/tone normal, oriented x3, sensory intact, responsive, speech normal Psychiatric: judgement/insight normal Skin: other - - TTP to the lateral aspect of the cuticle with right middle finger paronychia, no fat pad tenderness, no fixed flexed position. Procedures Incision and Drainage Incision and Drainage : Consent: Verbal Site: Right ring finger cuticle Blade Size: 11 I & D Procedure: betadine prep, sterile drapes applied Wound Location: upper extremity - right ring finger cuticle Wound's Depth, Shape: superficial Wound Length (cm): 1 Wound Explored: contaminated - greenish purulent dc drained freely Splint Applied?: No Sling Applied?: No Patient Tolerated: Well Complications: None Medical Decision Making PA Attestation Dr. Mace Is my supervising Physician whom patient management has been discussed with. Diagnostic Impression: Primary Impression: Paronychia of right ring finger ER Course Pt. presents to the ED c/o pain, swelling, and erythema of the Right ring finger. Pt. is right hand dominant. Pain is constant and localized. Pain exacerbated with touch. 10/10 in severity. Onset 3 was progressive over 3 days. Pt. has been doing warm water soaks at home with Epson salt. Pt. utd with vaccinations. Pt. reports having a hang nail there several days ago. Denies fevers or chills. Denies finger pad tenderness. Ddx considered but are not limited to cellulitis, paronychia, eponychia, ingrown toe nail, fracture, d/L, gout Vital signs: are WNL, pt. is afebrile H&PE are most consistent -- TTP to the lateral aspect of the cuticle with right middle finger paronychia, no fat pad tenderness, no fixed flexed position. ORDERS: none required at this time, the diagnosis is clinical ED INTERVENTIONS: - verbal consent was received . - lesion was cleaned with betadine prep. - Small incision to the cuticle line of the right ring finger using No 11. scalpel to drain the paronychia without anesthesia. purulent Pus drained. Bleeding was controlled with direct pt. tolerated well without complication. - sterile band-aid was then applied afterward. - will d/c pt. with PO abx. DISCHARGE: At this time pt. is stable for d/c to home. Will provide printed patient care instructions, and any necessary prescriptions. Care plan and follow up instructions have been discussed with the patient prior to discharge. Last Vital Signs Date Time Temp Pulse Resp B/P (MAP) Pulse Ox O2 Delivery O2 Flow Rate FiO2 10/10/20 14:04 98.0 75 18 136/79 100 Room Air Disposition: HOME, SELF-CARE Condition: Stable Scripts Amoxicillin/Potassium Clav 875-125* (AUGMENTIN 875-125 TABLET*) 1 Each Tablet 1 TAB ORAL TWICE A DAY for 7 Days, #14 TAB Prov: Cheri Santana 10/10/20 Mupirocin* (MUPIROCIN*) 22 Gm Oint...g. 1 APPLIC TOPIC THREE TIMES A DAY, #22 GM Prov: Cheri Santana 10/10/20 Referrals: [facility],REFERRING (PCP) Gauri Kamara Comp. [facility] + [facility] Patient Instructions: Paronychia Additional Instructions: Take medications as directed. Follow up with a Primary Care Provider in 3-5 days, even if your symptoms have resolved. --Please review list of primary care clinics, if you do not already have a primary care provider Return sooner to ED if new symptoms occur, or current symptoms become worse. - Please note that this Emergency Department Report was dictated using [employer] payable representative technology software, occasionally this can lead to erroneous entry secondary to interpretation by the dictation equipment. Cheri Santana Oct 10, 2020 14:23
[2020-10-10] MEDS ORDERED: AUGMENTIN 875-1 EAC1 ORAL (14:24)
[2020-10-10] MEDS ORDERED: MUPIROCIN22 GM TOPIC (14:24)
[2020-10-10 14:28] VITALS: BP 137/89
== END 2020-10-10 14:29 | disposition home or self-care (01) ==
LOC: EMR 13:38
DX: L03.011 Cellulitis of right finger (principal); J45.909 Unspecified asthma, uncomplicated; Z91.012 Allergy to eggs; Z91.013 Allergy to seafood; Z91.018 Allergy to other foods
CPT/HCPCS: 10060; Z7502; 99282